=== PATIENT | male | born 1970 | race Caucasian/White ===

== ENCOUNTER → 2017-04-08 | Outpatient (CLI) | payer MEDICAID | LOC: BRMIMAGING 12:30 | PROVIDERS: ATTEND Registered Nurse | DX: M54.6 Pain in thoracic spine (principal); M54.5 Low back pain; G89.29 Other chronic pain; M54.2 Cervicalgia; M51.36 Other intervertebral disc degeneration, lumbar region; M43.06 Spondylolysis, lumbar region | CPT/HCPCS: 72040-PO; 72100-PO ==